=== PATIENT | male | born 1940 | race Caucasian/White ===

== ENCOUNTER → 2017-08-06 | Day surgery (SDC) | payer MEDICARE, BC ==
[2017-08-06] VITALS (11 sets, daily range): BP systolic 142–169; BP diastolic 58–79; PULSE 49–93; TEMP 98.1–98.4
[~2017-08-06] VITALS: Ht 180.3 cm; Wt 90.4 kg
[~2017-08-06] MED LIST: ATIVAN 1MG T1 MG/TAB PO; COUMADIN 6MG6 MG/TAB PO; COUMADIN4 MG PO; COZAAR 50MG50 MG/TAB PO; DIABETA 5MG5 MG/TAB PO; GLUCOPHAGE500 MG/TAB PO; HCTZ 25MG TAB25 MG PO; HYTRIN 5MG C5 MG/CAP PO; LANOXIN 0.25M0.25 MG PO; LANTUS100 U/ML SQ; LIPITOR 10MG10 MG PO; LOPID 600M600 MG/TAB PO; LOPRESSOR 225 MG/TAB PO; NITROSTAT0.4 MG/TAB SL; NORVASC 10MG10 MG PO; SYNTHROID0.137 MG PO; TIMOLOL MALEATE5 M1 OP; TRAVATAN Z 2.52.5 ML OU
[2017-08-06 09:10] LABS: HEMATOCRIT 40.5 % (42.0-52.0); HEMOGLOBIN 13.1 g/dl (13.5-18.0); MEAN CELL VOLUME 94 fl (80.0-100.0); MEAN CORPUSCULAR HEMOGLOBIN 31 pg (27.0-31.0); MEAN CORPUSCULAR HGB CONC 32 g/dl (33.0-37.0); MEAN PLATELET VOLUME 11.2 fl (7.4-10.4); PLATELET COUNT 189 K/mm3 (130-400); WHITE BLOOD COUNT 5.3 K/mm3 (4.8-10.8)
[2017-08-06 09:16] LABS: INR 1.3 (0.8-3.0)
[2017-08-06 09:22] LABS: CALCIUM 8.9 mg/dL (8.4-10.2); CREATININE, serum 1.14 mg/dL (0.66-1.25); POTASSIUM 5.1 mmol/L (3.4-5.0)
[2017-08-06 13:14] LABS: ARTERIAL BLD GAS O2 SATURATION 94.2 % (92-100); ARTERIAL BLD GAS TCO2 CT 33.5; ARTERIAL BLOOD GAS BASE EXCESS 3.5 (-2-2); ARTERIAL BLOOD GAS HCO3 31.5 meq/L (22-26); ARTERIAL BLOOD GAS PO2 86.2 mmHg (80-100); OXYHEMOGLOBIN 93.3 %
[2017-08-06 13:15] LABS: ATS? NO
== END ==
LOC: COL.CAR 08:00
PROVIDERS: Internal Medicine Cardiovascular Disease
DX: I27.20 Pulmonary hypertension, unspecified (principal); I25.10 Atherosclerotic heart disease of native coronary artery without angina pectoris; Z79.01 Long term (current) use of anticoagulants; E11.9 Type 2 diabetes mellitus without complications; I70.0 Atherosclerosis of aorta; Z79.84 Long term (current) use of oral hypoglycemic drugs; I10 Essential (primary) hypertension; E78.5 Hyperlipidemia, unspecified; I35.0 Nonrheumatic aortic (valve) stenosis; I48.0 Paroxysmal atrial fibrillation
CPT/HCPCS: C1760; C1769; C1894; J2250; J3010; Q9967

== ENCOUNTER → 2018-04-12 | Outpatient (CLI) | payer MEDICARE, BC | LOC: COL.LAB 14:21 | DX: I27.20 Pulmonary hypertension, unspecified (principal) ==

== ENCOUNTER → 2018-04-16 | Outpatient (CLI) | payer MEDICARE, BC ==
[2018-04-16 11:34] LABS: ARTERIAL BLD GAS O2 SATURATION 93.5 % (92-100); ARTERIAL BLD GAS TCO2 CT 27.9; ARTERIAL BLOOD GAS BASE EXCESS -0.4 (-2-2); ARTERIAL BLOOD GAS HCO3 26.3 meq/L (22-26); ARTERIAL BLOOD GAS PCO2 51.6 mmHg (35-45); ARTERIAL BLOOD GAS PO2 75.3 mmHg (80-100); ARTERIAL BLOOD GAS pH 7.33 (7.35-7.45)
== END ==
LOC: COL.PUL 11:10
PROVIDERS: Internal Medicine Pulmonary Disease
DX: I27.20 Pulmonary hypertension, unspecified (principal)

== ENCOUNTER → 2018-07-19 | Outpatient (CLI) | payer MEDICARE, BC ==
[2018-07-19 10:19] LABS: ARTERIAL BLD GAS TCO2 CT 28.5; ARTERIAL BLOOD GAS BASE EXCESS 0.2 (-2-2); ARTERIAL BLOOD GAS HCO3 26.9 meq/L (22-26); ARTERIAL BLOOD GAS PCO2 52.5 mmHg (35-45); ARTERIAL BLOOD GAS pH 7.33 (7.35-7.45)
== END ==
LOC: COL.PUL 09:58
PROVIDERS: Internal Medicine Pulmonary Disease
DX: I27.20 Pulmonary hypertension, unspecified (principal)

== ENCOUNTER → 2019-01-12 | Outpatient (CLI) | payer MEDICARE, BC ==
[2019-01-12 07:40] LABS: ARTERIAL BLD GAS O2 SATURATION 92.8 % (92-100); ARTERIAL BLD GAS TCO2 CT 23.6; ARTERIAL BLOOD GAS BASE EXCESS -4.2 (-2-2); ARTERIAL BLOOD GAS HCO3 22.2 meq/L (22-26); ARTERIAL BLOOD GAS PCO2 45.7 mmHg (35-45); ARTERIAL BLOOD GAS PO2 75.7 mmHg (80-100)
== END ==
LOC: COL.PUL 07:27
PROVIDERS: Internal Medicine Pulmonary Disease
DX: J96.12 Chronic respiratory failure with hypercapnia (principal)

== ENCOUNTER 2019-02-28 10:01 | Inpatient (IN) | payer MEDICARE, BC ==
[~2019-02-28] VITALS: Ht 180.3 cm; Wt 93.3 kg
[2019-02-28 10:48] LABS: HEMOGLOBIN 12.4 g/dl (13.5-18.0); MEAN CELL VOLUME 99 fl (80.0-100.0); MEAN CORPUSCULAR HEMOGLOBIN 31 pg (27.0-31.0); MEAN CORPUSCULAR HGB CONC 31 g/dl (33.0-37.0); MEAN PLATELET VOLUME 11.4 fl (7.4-10.4); PLATELET COUNT 190 K/mm3 (130-400); RED BLOOD COUNT 4.06 M/mm3 (4.20-5.60); REDCELL DISTRIBUTION WIDTH-CV 12.6 % (11.5-14.5)
[2019-02-28 11:12] VITALS: BP 131/58; PULSE 58; TEMP 97.9
[2019-02-28 11:14] LABS: INR 2.6 (0.8-3.0); PROTHROMBIN TIME 31.3 SECONDS (9.7-12.8)
[2019-02-28 11:20] LABS: ALBUMIN 3.9 gm/dL (3.5-5.0); BILIRUBIN,TOTAL 0.2 mg/dL (0.0-1.0); CALCIUM 8.5 mg/dL (8.4-10.2); CREATININE, serum 1.51 (0.66-1.25); MAGNESIUM 2.1 mg/dL (1.6-2.3); POTASSIUM 4.7 mmol/L (3.4-5.0); TOTAL PROTEIN 7.3 gm/dL (6.4-8.2)
[2019-02-28] MEDS ORDERED: LOTRISONE CREAM15 GM TP (11:29)
[2019-02-28] MEDS ORDERED: HYTRIN 1MG C1 MG/CAP PO (11:36)
--- NOTE | 2019-02-28 11:45 | NUR ---
Patient up to room 304 with at bedside. AQUILES Patricia completed admission and med rec for this nurse. This nurse in with Pt and family from room 306 at the time. Pt seen by this nurse, pt sitting in recliner eating lunch. A&O. Denies pain at this time. Denies SOB, chest pain, N/V. Lung sounds clear, Heart RRR, patient on room air. per patient he uses O2 at night only. Pulses strong bilaterally, no skin issues. Pt has RAC INT IV, patent. Denies needs at this time. patient ambulates independently. No other needs. Call light within reach.
[2019-02-28 15:47] VITALS: BP 130/57; PULSE 60; TEMP 97.2
--- NOTE | 2019-02-28 15:58 | NUR ---
Patient having loop recorder placed by Dr. Lora. Consent for procedure signed, all questions answered, patient verbalizes understanding.
--- NOTE | 2019-02-28 17:19 | NUR ---
Patient had loop recorder placed. Site in middle of chest, covered with gauze, CDI, no bleeding. Pt tolerated well. No other needs at this time. Pt back to recliner at this time.
[2019-02-28 18:57] VITALS: BP 125/51; PULSE 54; TEMP 97.8
--- NOTE | 2019-02-28 19:26 | NUR ---
report given to damian bob
--- NOTE | 2019-02-28 20:50 | NUR ---
PT RESTING IN CHAIR A+oX4. NO PAIN. TELE ON AND SHOWS NSR. REPORTS NO SOA. SHIFT ASSESSMENT COMPLETE. NO CONCERNS. CALL LIGHT IN REACH
--- NOTE | 2019-02-28 21:30 | NUR ---
PT RESTING IN CHAIR a+OX4. REPORTS NO PAIN. LOOP RECORDER DRESSING DCI. LUNGS CLEAR. VITALS STABLE. TELE ON. THIS NURSE CALLED DR LAUREANO AND RECIEVED ORDER FOR BIPAP/CPAP AT NIGHT VIA PT REQUEST. IV FLUSHES WELL, NO SWELLING, NO REDNESS. CALL LIGHT IN REACH.
[2019-02-28 23:01] VITALS: BP 122/48; PULSE 51; TEMP 97.9
--- NOTE | 2019-03-01 03:44 | NUR ---
PT RESTING IN BED WITH BIPAP ON. NO NEEDS AT THIS TIME
[2019-03-01 04:40] VITALS: BP 118/87; PULSE 50; TEMP 97.9
--- NOTE | 2019-03-01 05:23 | NUR ---
PT HAD AN UNEVENTFUL NIGHT REPORTED NO PAIN. LOOP RECORDER DCI. IV FLUSHES WELL, NO SWELLING, NO REDNESS. TELE ON. PT REQUESTED BG CHECK- BG 45 THIS MORNING- ORANGE JUICE AND GLUCERNA GIVEN- BG INCREASED TO 95 AFTER 15 MIN CHECK. PT ON BIPA THROUGOUT NIGHT. NO SOA. NO OTHER NEEDS, CALL LIGHT IN REACH.
--- NOTE | 2019-03-01 07:30 | NUR ---
report give to lisbeth moore pt reports no needs
[2019-03-01 07:43] VITALS: BP 139/64; PULSE 51; TEMP 98.2
[2019-03-01 08:07] LABS: BASO % 0.2 % (0.0-2.0); EOS # 0.3 (0.0-0.7); EOS % 7.4 % (0-4.0); GRAN # 2.7 (1.4-6.5); HEMOGLOBIN 12.3 g/dl (13.5-18.0); LYMPH # 1.1 (1.2-3.4); LYMPH % 24.9 % (20.0-51.0); MEAN CELL VOLUME 95 fl (80.0-100.0); MEAN CORPUSCULAR HEMOGLOBIN 30 pg (27.0-31.0); MEAN CORPUSCULAR HGB CONC 32 g/dl (33.0-37.0); MEAN PLATELET VOLUME 10.7 fl (7.4-10.4); MONO # 0.4 (0.1-0.6); MONO % 8.3 % (1.7-9.3); PLATELET COUNT 204 K/mm3 (130-400); REDCELL DISTRIBUTION WIDTH-CV 12.3 % (11.5-14.5)
[2019-03-01 08:12] LABS: PROTHROMBIN TIME 35.9 SECONDS (9.7-12.8)
[2019-03-01 08:17] LABS: CREATININE, serum 1.42 (0.66-1.25); MAGNESIUM 2.1 mg/dL (1.6-2.3); POTASSIUM 5.1 mmol/L (3.4-5.0)
--- NOTE | 2019-03-01 08:37 | NUR ---
Pt sitting up in chair eating breakast, denies any chest pain, shortness of breath or palpitations. Pt requested pills to be taken with applesauce and the bigger pill to be crushed as he has diffuclty swallowing. Completed morning assessment. Breath sounds clear, radial pulses +2. No edema noted. Dressing to chest is clean dry and intact, no redness or swellling noted. Denies any other needs at this time. Call light in reach.
--- NOTE | 2019-03-01 09:19 | NUR ---
Initial visit; Supervisor Fine Grading looked in on patient, who is a long time acquaintance. Supervisor Fine Grading let him know of the availability of [facility] and will continue to look in on him while he is a patient.
[2019-03-01 11:36] VITALS: BP 116/55; PULSE 54; TEMP 98.3
--- NOTE | 2019-03-01 14:09 | NUR ---
SAMANTHA met [facility] patient, and other friends/family about discharge planning. Patient lives independently at home with his . Patient's PCP is Dr Jenkins and he obtains prescriptions from [facility]. Patient does not use any DME or home health and is independent with all ADLs. Patient's reports patient should have a DPOA-HC. SW does not anticipate any discharge needs.
[2019-03-01 15:41] VITALS: BP 130/59; PULSE 56; TEMP 97.8
--- NOTE | 2019-03-01 18:33 | NUR ---
Pt sitting in chair, denies any needs at this time. Lines check on tele box. Call light in reach.
--- NOTE | 2019-03-01 19:15 | NUR ---
Report given to Regina KWAN. Pt in chair, denies any needs at this time.
[2019-03-01 20:50] VITALS: BP 132/63; PULSE 56; TEMP 97.9
--- NOTE | 2019-03-01 20:50 | NUR ---
Shift assessment complete. Patient in bed, dangling at bedside. Denies pain. Coumadin refused by patient d/t to INR being 3.0. Patient called his primary care doc today and they told him to hold the coumadin. Notified Dr. Vidal, who is marine electronics technician for Dr. Lora. Patient also requesting only 15 units levemir d/t hypoglycemic episode this morning (had the ordered 30u last night). Dr. Vidal notified, and ok with plan. Order changed, see eMAR. Denied further needs at this time. Will continue to monitor.
--- NOTE | 2019-03-01 21:27 | NUR ---
Notified Dr. Vidal that patient only wanted to take [address] Vidal ok with plan. Will change order.
[2019-03-01 23:45] VITALS: BP 117/51; PULSE 52; TEMP 97.9
--- NOTE | 2019-03-02 02:18 | NUR ---
Patient in bed, sleeping. Appears comfortable. Will continue to monitor.
[2019-03-02 03:19] VITALS: BP 137/65; PULSE 54; TEMP 98.4
--- NOTE | 2019-03-02 04:09 | NUR ---
Patient in bed, dangling at bedside using urinal. Denies pain. Denies further needs at this time. Will continue to monitor.
[2019-03-02 07:28] LABS: BASO % 0.2 % (0.0-2.0); EOS # 0.4 (0.0-0.7); EOS % 7.7 % (0-4.0); GRAN # 2.8 (1.4-6.5); GRAN % 57.1 % (42.2-75.2); LYMPH # 1.3 (1.2-3.4); LYMPH % 25.5 % (20.0-51.0); MEAN CELL VOLUME 94 fl (80.0-100.0); MEAN CORPUSCULAR HEMOGLOBIN 31 pg (27.0-31.0); MEAN CORPUSCULAR HGB CONC 33 g/dl (33.0-37.0); MEAN PLATELET VOLUME 10.7 fl (7.4-10.4); MONO # 0.5 (0.1-0.6); MONO % 9.3 % (1.7-9.3); PLATELET COUNT 202 K/mm3 (130-400); RED BLOOD COUNT 3.87 M/mm3 (4.20-5.60); REDCELL DISTRIBUTION WIDTH-CV 12.4 % (11.5-14.5)
[2019-03-02 07:40] LABS: HEMATOCRIT 36.4 % (42.0-52.0)
[2019-03-02 07:43] LABS: CALCIUM 8.7 mg/dL (8.4-10.2); CREATININE, serum 1.42 (0.66-1.25); POTASSIUM 4.7 mmol/L (3.4-5.0)
[2019-03-02 07:46] LABS: INR 2.9 (0.8-3.0); PROTHROMBIN TIME 34.5 SECONDS (9.7-12.8)
[2019-03-02 07:52] VITALS: BP 132/69; PULSE 58; TEMP 98.2
[2019-03-02 10:45] VITALS: BP 112/55; PULSE 57; TEMP 98.2
--- NOTE | 2019-03-02 10:48 | NUR ---
Follow-up visit; Patient doing well, both he and his thanked Media Manager for spending time with them and offering God's blessings.
--- NOTE | 2019-03-02 13:00 | NUR ---
PT HAD UNEVENTFUL MORNING. NO C/O PAIN. PT IS TO DISCHARGE THIS AFTERNOON. PT AT BEDSIDE. QTC HAS REMAINED WNL UNDER 500, NEEDED FOR MED LOADING OF SOTOLOL. NO ADVERSE EFFECTS NOTED. PT AWARE OF DISCHARGE AND INFORMED HE CAN GET DRESSED AND I WILL GET PAPERWORK TOGETHER AND THEN REMOVE HIS IV BEFORE DISCARGE.
[2019-03-02] MEDS ORDERED: BETAPACE 80MG80 MG PO (13:48)
--- NOTE | 2019-03-02 14:15 | NUR ---
DISCHARGE PAPERWORK COMPLETED AND SIGNATURES OBTAINED. NO QUESTIONS VOICED. IV AND TELE REMOVED. PT DENIED NEED FOR ESCORT OUT OF FACILITY. PAPER SCRIPT FOR SOTOLOL PROVIDED TO PT AT DISCHARGE, WRITTEN PAPER SCRIPT NEEDED FOR [facility].
== END 2019-03-02 14:15 | disposition home or self-care (01) | DRG 262 ==
LOC: PEDS 10:01
PROVIDERS: Nurse Practitioner; ADMIT Internal Medicine Cardiovascular Disease
PROC: 0JH632Z Insertion of Monitoring Device into Chest Subcutaneous Tissue and Fascia, Percutaneous Approach (ICD-10-PCS; principal; 2019-02-28)
DX: I48.0 Paroxysmal atrial fibrillation (principal); Z79.01 Long term (current) use of anticoagulants; R00.1 Bradycardia, unspecified; Z51.81 Encounter for therapeutic drug level monitoring
CPT/HCPCS: C1764; J1815

== ENCOUNTER → 2019-08-12 | Outpatient (CLI) | payer MEDICARE, BC ==
[~2019-08-12] MED LIST changes: +BETAPACE 80MG80 MG PO; +HYTRIN 1MG C1 MG/CAP PO; +LOTRISONE CREAM15 GM TP
[2019-08-12 08:55] LABS: ARTERIAL BLD GAS O2 SATURATION 94.3 % (92-100); ARTERIAL BLD GAS TCO2 CT 22.3; ARTERIAL BLOOD GAS BASE EXCESS -4.2 (-2-2); ARTERIAL BLOOD GAS HCO3 21.1 meq/L (22-26); ARTERIAL BLOOD GAS PCO2 39.1 mmHg (35-45); ARTERIAL BLOOD GAS PO2 76.3 mmHg (80-100); ARTERIAL BLOOD GAS pH 7.35 (7.35-7.45)
== END ==
LOC: COL.PUL 08:30
PROVIDERS: Internal Medicine Pulmonary Disease
DX: J96.12 Chronic respiratory failure with hypercapnia (principal)

== ENCOUNTER 2019-10-21 07:36 | Day surgery (SDC) | payer MEDICARE, BC ==
[2019-10-21] VITALS (12 sets, daily range): BP systolic 118–158; BP diastolic 53–71; PULSE 54–93; TEMP 97.3–97.9
[~2019-10-21] VITALS: Ht 180.3 cm; Wt 95.2 kg
[~2019-10-21 07:36] MED LIST changes: -COZAAR 50MG50 MG/TAB PO; +COZAAR100 MG PO
[2019-10-21] MEDS ORDERED: BETAPACE 120MG120 MG PO (08:09)
[2019-10-21 08:37] LABS: HEMOGLOBIN 11.9 g/dl (13.5-18.0); MEAN CELL VOLUME 95 fl (80.0-100.0); MEAN CORPUSCULAR HEMOGLOBIN 31 pg (27.0-31.0); MEAN CORPUSCULAR HGB CONC 32 g/dl (33.0-37.0); MEAN PLATELET VOLUME 10.4 fl (7.4-10.4); PLATELET COUNT 229 K/mm3 (130-400); RED BLOOD COUNT 3.89 M/mm3 (4.20-5.60); REDCELL DISTRIBUTION WIDTH-CV 12.6 % (11.5-14.5)
[2019-10-21 08:38] LABS: HEMATOCRIT 36.8 % (42.0-52.0)
[2019-10-21 08:39] LABS: INR 1.4 (0.8-3.0); PROTHROMBIN TIME 16.3 SECONDS (9.7-12.8)
[2019-10-21 08:44] LABS: CREATININE, serum 1.57 (0.66-1.25); POTASSIUM 4.6 mmol/L (3.4-5.0)
--- NOTE | 2019-10-21 10:03 | NUR ---
SEE MERGE DOCUMENTATION FOR MEDICATION ADMINISTRATION TIMES AND INTRA/POST PROCEDURE SEDATION ASSESSMENT DOCUMENTATION.
[2019-10-21] MEDS ORDERED: DIABETA 5MG5 MG/TAB PO (12:10)
--- NOTE | 2019-10-21 19:35 | NUR ---
Pt to floor fron the mobile home laborer this afternoon, surgical sites remain CDI as of this note. Pt has no C/O pain at this time states that he does have some mild discomfort at the sites. Post operative VS complete and were stable.
--- NOTE | 2019-10-21 20:30 | NUR ---
Initial shift assessment done- chest dressings x2 dry and intact- left arm sling on. Pt states site is sore- will give Tylenol tonight, does not want the ice to site at this time- in room, staying the night. Tele on.
[2019-10-22 03:41] VITALS: BP 127/59; PULSE 60; TEMP 98.4
--- NOTE | 2019-10-22 05:38 | NUR ---
Slept for only a few hours- Up in chair at this time, was here all night- AM EKG just completed by respiratory therapy, Was given Tylenol x2 this shift for pacemaker site pain, ice applied also. L/arm sling remained on all night. VSS
[2019-10-22 06:23] LABS: BASO % 0.4 % (0.0-2.0); EOS # 0.4 (0.0-0.7); EOS % 7.6 % (0-4.0); GRAN # 3.2 (1.4-6.5); GRAN % 57.8 % (42.2-75.2); HEMOGLOBIN 11.7 g/dl (13.5-18.0); LYMPH # 1.2 (1.2-3.4); LYMPH % 22.3 % (20.0-51.0); MEAN CELL VOLUME 94 fl (80.0-100.0); MEAN CORPUSCULAR HEMOGLOBIN 31 pg (27.0-31.0); MEAN CORPUSCULAR HGB CONC 33 g/dl (33.0-37.0); MEAN PLATELET VOLUME 10.7 fl (7.4-10.4); MONO # 0.7 (0.1-0.6); MONO % 11.7 % (1.7-9.3); PLATELET COUNT 204 K/mm3 (130-400); RED BLOOD COUNT 3.82 M/mm3 (4.20-5.60); REDCELL DISTRIBUTION WIDTH-CV 12.6 % (11.5-14.5)
[2019-10-22 06:33] LABS: ALBUMIN 3.8 gm/dL (3.5-5.0); BILIRUBIN,TOTAL 0.2 mg/dL (0.0-1.0); CREATININE, serum 1.37 (0.66-1.25); POTASSIUM 4.4 mmol/L (3.4-5.0)
[2019-10-22 06:52] LABS: TOTAL PROTEIN 7.2 gm/dL (6.4-8.2)
[2019-10-22 07:15] VITALS: BP 136/59; PULSE 59; TEMP 97.9
--- NOTE | 2019-10-22 07:17 | NUR ---
Assessment charted. Patient A&Ox3. VSS. IV CDI. Denies pain and discomfort. at the bedside. LEft arm sling, incision nsite CDI, gauze and paper tape applied. Ice on site for comfort. No further needs expressed from patient. Call light within reach
[2019-10-22 11:26] VITALS: BP 116/52; PULSE 60; TEMP 98.1
[2019-10-22] MEDS ORDERED: CEPHALEXIN500 M1 PO (12:00)
--- NOTE | 2019-10-22 12:13 | NUR ---
Vasc Tech stopped by and offered prayer and support with patient.
--- NOTE | 2019-10-22 13:15 | NUR ---
Discharge paperwork reviewed with patient. Patient verbalized an understanding to follow doctors orders. IV Removed, tip intact, gauze and coban applied. Incision site CDI, patient told he didnt have to wear sling all the time by Dr Vidal. No further needs expressed from patient. Nursing staff transfered patient by wheelchair to vehicle.
== END 2019-10-22 13:15 | disposition home or self-care (01) ==
LOC: COL.CAR 07:36 → MEDICAL 12:11 → COL.CAR 13:30
PROVIDERS: Internal Medicine Cardiovascular Disease; Nurse Practitioner
DX: I48.0 Paroxysmal atrial fibrillation (principal); I49.5 Sick sinus syndrome; Z79.01 Long term (current) use of anticoagulants; I25.10 Atherosclerotic heart disease of native coronary artery without angina pectoris; I10 Essential (primary) hypertension; G47.34 Idiopathic sleep related nonobstructive alveolar hypoventilation; J45.909 Unspecified asthma, uncomplicated; E78.5 Hyperlipidemia, unspecified; E11.9 Type 2 diabetes mellitus without complications; I27.20 Pulmonary hypertension, unspecified; I08.3 Combined rheumatic disorders of mitral, aortic and tricuspid valves; Z79.4 Long term (current) use of insulin; Z79.899 Other long term (current) drug therapy
CPT/HCPCS: OP; C1769; C1785; C1894; C1898; J0690; J2250; J3010; J7030

== ENCOUNTER 2020-09-18 10:19 | Day surgery (SDC) | payer MEDICARE, BC ==
[~2020-09-18] VITALS: Ht 179.1 cm; Wt 93.6 kg
[2020-09-18] VITALS (12 sets, daily range): BP systolic 114–161; BP diastolic 49–75; PULSE 60–86; TEMP 97.9–98.2
[~2020-09-18 10:19] MED LIST changes: +BETAPACE 120MG120 MG PO; +CEPHALEXIN500 M1 PO
[2020-09-18] MEDS ORDERED: BETAPACE240 MG PO (11:54)
[2020-09-18] MEDS ORDERED: LOTRISONE CREAM15 GM TP (11:55)
[2020-09-18] MEDS ORDERED: LOVENOX 100100 MG/ML (12:03)
--- NOTE | 2020-09-18 14:10 | NUR ---
TO RM 2 PER CART FROM OR. NODS HEAD WITH ANY QUESTIONS. RESTING ON L SIDE. RASTA PRAT NO DRAINAGE NOTED. DRESSING CLEAN DRY INTACT. 02 SAT 100% ON 10L PER MASK. DISCONTINUED MASK PER PATEINT C/O BEING UNCOMFORTABLE. 02 SAT 93% ON ROOM AIR ON ADMISSION.
--- NOTE | 2020-09-18 14:25 | NUR ---
CONTINUES TO SLEEP QUIETLY.
--- NOTE | 2020-09-18 14:40 | NUR ---
PATIENT CONTINUES TO REST QUIETLY. DOES NOD HEAD TO ANSWER QUESTIONS.
--- NOTE | 2020-09-18 15:13 | NUR ---
MORE AWAKE AND SAT ON SIDE OF BED TO USE URINAL. VOIDED 200CC LIGHT YELLOW URINE. SITTING ON SIDE OF BED DRINKING HIS APPLE JUICE.
--- NOTE | 2020-09-18 15:15 | NUR ---
ASK TO HAVE HIS PHONE TO TALK WITH FAMILY
--- NOTE | 2020-09-18 15:42 | NUR ---
REPORT CALLED TO KELSIE KWAN
--- NOTE | 2020-09-18 18:45 | NUR ---
Patient alert and oriented, answers questions appropriately. See assessment. Right axillary incision with dressing CDI, ABHIJEET drain in place. ABHIJEET with scant amount of serosanguinous drainage noted. No c/o at this time.
--- NOTE | 2020-09-18 19:24 | NUR ---
Patient called concerned patient wears trilogy at home. Spoke with Dr. Amari fiore to add order for bipap. Order added. Respiratory notified.
--- NOTE | 2020-09-18 20:50 | NUR ---
Resting in bed. Assessment complete. Lungs diminished throughout. No edema noted. INT left AC without complications. ABHIJEET site has drainage present. ABHIJEET drainage charted. Denies pain. Denies needs at this time. Patient refused 35 units of levemir-accepted 20 units. Also patient has ordered 240mg of sotalol. Unsure of home dosing. Patient not on telemetry and pulse is 60. Spoke with Dr. Fitzpatrick-adebayo to hold sotalol tonight, will reassess in AM. Also informed regarding levemir change-was okay with 20 units. Patient denied other needs. call light in reach.
--- NOTE | 2020-09-19 00:01 | NUR ---
Resting in bed. Denies needs. Call light in reach
[2020-09-19 00:10] VITALS: BP 107/56; PULSE 79; TEMP 98.6
--- NOTE | 2020-09-19 01:53 | NUR ---
Resting in bed asleep. Call light in reach.
[2020-09-19 04:00] VITALS: BP 117/50; PULSE 62; TEMP 98.1
--- NOTE | 2020-09-19 06:17 | NUR ---
Patient had uneventful night. Resting in bed this AM. Call light in reach.
--- NOTE | 2020-09-19 06:55 | NUR ---
Report given to AQUILES Arnett
[2020-09-19 07:16] VITALS: BP 119/54; PULSE 62; TEMP 98.1
[2020-09-19] MEDS ORDERED: OXYGEN (07:41)
[2020-09-19] MEDS ORDERED: PROTONIX 40MG T40 MG PO (07:57)
[2020-09-19] MEDS ORDERED: VOLTAREN GEL 1%1 TU TP (07:58)
[2020-09-19] MEDS ORDERED: ZYLOPRIM 100MG100 MG PO (07:59)
[2020-09-19] MEDS ORDERED: NYSTATIN OR100 MU/ML PO (08:00)
[2020-09-19] MEDS ORDERED: ULTRAM 50MG TAB50 MG PO (08:01)
[2020-09-19] MEDS ORDERED: COUMADIN4 MG PO (08:03)
--- NOTE | 2020-09-19 10:00 | NUR ---
Patient alert and oriented, answers questions appropriately. See assessment. Right axillary incision site dressing changed, no redness or drainage noted to site. ABHIJEET drain to right axillary compressed, draining scant amount serosanguinous drainage. Post op exercises reveiwed with patient. No c/o at this time.
[2020-09-19] MEDS ORDERED: NORCO 325 MG-51 TAB PO (10:51)
[2020-09-19 11:04] VITALS: BP 122/51; PULSE 57; TEMP 98.4
--- NOTE | 2020-09-19 13:12 | NUR ---
Discharge instructions reviewed with patient, ABHIJEET drain dressing and care reviewed with patient, verbalized understanding. Discharged via wheelchair to auto/home with spouse at 1312.
== END 2020-09-19 13:17 | disposition home or self-care (01) ==
LOC: SDCO 10:19 → SURG 16:29 → SDCO 09-19 13:17
DX: C79.89 Secondary malignant neoplasm of other specified sites (principal); E11.49 Type 2 diabetes mellitus with other diabetic neurological complication; I25.10 Atherosclerotic heart disease of native coronary artery without angina pectoris; I10 Essential (primary) hypertension; I48.0 Paroxysmal atrial fibrillation; E03.9 Hypothyroidism, unspecified; M19.90 Unspecified osteoarthritis, unspecified site; E66.9 Obesity, unspecified; E78.5 Hyperlipidemia, unspecified; G47.33 Obstructive sleep apnea (adult) (pediatric); Z79.4 Long term (current) use of insulin; Z79.899 Other long term (current) drug therapy; Z79.01 Long term (current) use of anticoagulants; Z90.49 Acquired absence of other specified parts of digestive tract; Z99.81 Dependence on supplemental oxygen
CPT/HCPCS: OP; J0690; J1650; J1815; J2405; J2704; J3010; J7120

== ENCOUNTER 2020-11-06 09:42 | Emergency (ER) | payer MEDICARE, BC ==
[~2020-11-06] VITALS: Ht 177.8 cm; Wt 93.2 kg
[~2020-11-06 09:42] MED LIST changes: +BETAPACE240 MG PO; +LOVENOX 100100 MG/ML; +NORCO 325 MG-51 TAB PO; +NYSTATIN OR100 MU/ML PO; +OXYGEN; +PROTONIX 40MG T40 MG PO; +ULTRAM 50MG TAB50 MG PO; +VOLTAREN GEL 1%1 TU TP; +ZYLOPRIM 100MG100 MG PO
[2020-11-06 09:57] VITALS: TEMP 97.3
[2020-11-06 10:25] LABS: BASO % 0.7 % (0.0-2.0); EOS # 0.4 (0.0-0.7); EOS % 9.2 % (0-4.0); GRAN # 2.9 (1.4-6.5); GRAN % 62.5 % (42.2-75.2); HEMATOCRIT 39.3 % (42.0-52.0); HEMOGLOBIN 12.4 g/dl (13.5-18.0); LYMPH # 0.8 (1.2-3.4); MEAN CELL VOLUME 96 fl (80.0-100.0); MEAN CORPUSCULAR HEMOGLOBIN 30 pg (27.0-31.0); MEAN CORPUSCULAR HGB CONC 32 g/dl (33.0-37.0); MEAN PLATELET VOLUME 10.5 fl (7.4-10.4); MONO # 0.4 (0.1-0.6); MONO % 9.2 % (1.7-9.3); PLATELET COUNT 195 K/mm3 (130-400); RED BLOOD COUNT 4.09 M/mm3 (4.20-5.60); REDCELL DISTRIBUTION WIDTH-CV 12.8 % (11.5-14.5)
[2020-11-06 10:33] LABS: ALANINE AMINOTRANSFERASE 28 U/L (4-49); ALBUMIN 4.1 gm/dL (3.5-5.0); ALKALINE PHOSPHATASE 65 U/L (50-136); ANION GAP 11 mmol/L (7-16); AST,SGOT 28 U/L (15-37); BILIRUBIN,TOTAL 0.3 mg/dL (0.0-1.0); BLOOD UREA NITROGEN 29 mg/dL (9-20); CALCIUM 8.7 mg/dL (8.4-10.2); CARBON DIOXIDE 23 mmol/L (22-30); CHLORIDE 108 mmol/L (98-107); CREATININE, serum 1.54 (0.66-1.25); GLUCOSE 153 mg/dL (74-106); SODIUM 142 mmol/L (137-145); TOTAL PROTEIN 7.6 gm/dL (6.4-8.2)
[2020-11-06 10:34] LABS: INR 2.4 (0.8-3.0); PROTHROMBIN TIME 27.4 SECONDS (9.7-12.8)
[2020-11-06 10:46] LABS: TROPONIN-I < 0.012 ng/mL (0.000-0.035)
[2020-11-06] MEDS ORDERED: GLUCOPHAGE500 MG/TAB PO (11:39)
[2020-11-06 11:54] VITALS: BP 95/66; PULSE 107
== END 2020-11-06 11:59 | disposition home or self-care (01) ==
LOC: COL.ER 09:42
PROVIDERS: Nurse Practitioner Primary Care
DX: I48.91 Unspecified atrial fibrillation (principal); E03.9 Hypothyroidism, unspecified; E78.5 Hyperlipidemia, unspecified; E11.9 Type 2 diabetes mellitus without complications; Z79.01 Long term (current) use of anticoagulants; Z87.891 Personal history of nicotine dependence; Z79.4 Long term (current) use of insulin; Z79.890 Hormone replacement therapy

== ENCOUNTER → 2021-01-31 | Outpatient (CLI) | payer MEDICARE, BC ==
[2021-01-31 12:35] LABS: ARTERIAL BLD GAS O2 SATURATION 93.9 % (92-100); ARTERIAL BLD GAS TCO2 CT 26.7; ARTERIAL BLOOD GAS BASE EXCESS 0.1 (-2-2); ARTERIAL BLOOD GAS HCO3 25.4 meq/L (22-26); ARTERIAL BLOOD GAS PCO2 43.9 mmHg (35-45); ARTERIAL BLOOD GAS PO2 75.2 mmHg (80-100); ARTERIAL BLOOD GAS pH 7.38 (7.35-7.45)
== END ==
LOC: COL.PUL 01-30 10:00
PROVIDERS: Internal Medicine Pulmonary Disease
DX: J96.12 Chronic respiratory failure with hypercapnia (principal)

== ENCOUNTER → 2021-09-26 | Outpatient (CLI) | payer MEDICARE, BC ==
[2021-09-26 12:02] LABS: ARTERIAL BLD GAS O2 SATURATION 94.5 % (92-100); ARTERIAL BLOOD GAS BASE EXCESS -3.4 (-2-2); ARTERIAL BLOOD GAS HCO3 22.6 meq/L (22-26); ARTERIAL BLOOD GAS PCO2 44.7 mmHg (35-45); ARTERIAL BLOOD GAS PO2 77.1 mmHg (80-100); ARTERIAL BLOOD GAS pH 7.32 (7.35-7.45)
== END ==
LOC: COL.PUL 11:35
PROVIDERS: Internal Medicine Pulmonary Disease
DX: J96.12 Chronic respiratory failure with hypercapnia (principal)